=== PATIENT | female | born 1980 | race Two or more races ===

== ENCOUNTER 2017-09-16 15:38 | Emergency (ER) | payer SELFPAY ==
[~2017-09-16] VITALS: Ht 160 cm; Wt 68.0 kg
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
[2017-09-16] MEDS ORDERED: IBUPROFEN 400 MG TABLET ONE (16:20)
[2017-09-16] MEDS ORDERED: ACETAMINOPHEN ES 500 MG TABLET ONE (16:20)
--- NOTE | 2017-09-16 16:26 | NUR ---
patient medicated per md orders.
[2017-09-16] MEDS ORDERED: ACETAMINOPHEN ES 500 MG TABLET PO ONE (16:30)
[2017-09-16] MEDS ORDERED: IBUPROFEN 400 MG TABLET PO ONE (16:30)
--- NOTE | 2017-09-16 17:54 | NUR ---
Patient discharged to home in stable condition. Written and verbal after care instructions given. Patient verbalizes understanding of instruction.
[2017-09-16 17:55] VITALS: BP 122/74
== END 2017-09-16 17:55 | disposition home or self-care (01) ==
LOC: ER 15:40
DX: S20.211A Contusion of right front wall of thorax, initial encounter (principal); V29.59XA Motorcycle passenger injured in collision with other motor vehicles in traffic accident, initial encounter; Y93.89 Activity, other specified; Y92.89 Other specified places as the place of occurrence of the external cause; Y99.9 Unspecified external cause status
CPT/HCPCS: 71010; 99283; A4606 ×2; Z7610 ×2